=== PATIENT | male | born 1970 | race Caucasian/White ===

== ENCOUNTER 2017-08-29 15:42 | Emergency (ER) | payer OTHER ==
[2017-08-29 16:26] VITALS: BP 128/86
--- NOTE | 2017-08-29 16:37 | UC ---
Shoulder Pain HPI - HPI Summary HPI Summary: left shoulder pain x 1 day injury at work as he was lifting pain with over head activity , + weakness of the left shoulder no swelling, no redness - History of Current Complaint Chief Complaint: UCUpperExtremity Stated Complaint: LEFT SHOULDER INJURY (WC) Time Seen by Provider: 08/29/17 16:27 Hx Obtained From: Patient Onset/Duration: Sudden Onset, Lasting Days - 1, Still Present Timing: Constant Severity Initially: Moderate Severity Currently: Moderate Location Of Pain: Is Discrete @ - left shoulder Character: Aching, Throbbing Aggravating Factor(s): Movement, Lifting, Flexion, Extension, Internal Rotation , External Rotation, Abduction Alleviating Factor(s): Rest Associated Signs And Symptoms: Positive: Weakness. Negative: Swelling, Redness , Bruising, Fever, Numbness/Tingling - Allergies/Home Medications Allergies/Adverse Reactions: Allergies Allergy/AdvReac Type Severity Reaction Status Date / Time No Known Allergies Allergy Verified 08/29/17 16:19 Home Medications: Home Medications NK [No Home Medications Reported] 08/29/17 [History Confirmed 08/29/17] PMH/Surg Hx/FS Hx/Imm Hx - Additional Past Medical History Additional PMH: tonsilar cancer - Surgical History Surgical History: Yes Surgery Procedure, Year, and Place: TONSILLECTOMY AND LEFT NECK TUMOR REMOVAL 2008 - Family History Known Family History: Negative: Diabetes - Social History Alcohol Use: Rare Substance Use Type: None Smoking Status (MU): Never Smoked Tobacco Review of Systems Constitutional: Negative Skin: Negative Eyes: Negative ENT: Negative Respiratory: Negative Cardiovascular: Negative Is Patient Immunocompromised?: No All Other Systems Reviewed And Are Negative: Yes Physical Exam Triage Information Reviewed: Yes Appearance: Well-Appearing, No Pain Distress, Well-Nourished Vital Signs: Initial Vital Signs Temp 98.1 F 08/29/17 16:20 Pulse 58 08/29/17 16:20 Resp 16 08/29/17 16:20 BP 128/86 08/29/17 16:20 Pulse Ox 99 08/29/17 16:20 Vital Signs Reviewed: Yes Eyes: Positive: Conjunctiva Clear ENT: Positive: Normal ENT inspection, Hearing grossly normal, Pharynx normal Neck exam: Normal Neck: Positive: Supple, Nontender, No Lymphadenopathy Respiratory: Positive: Chest non-tender, Lungs clear, Normal breath sounds Cardiovascular: Positive: RRR, No Murmur, Pulses Normal Musculoskeletal: Positive: Other: - left shoulder: no swelling, no erythema, no tendernss, limited ROM on abduction and flexion limited strength of the shoulder Shoulder Course/Dx - Differential Dx/Diagnosis Provider Diagnoses: Rotator cuff injury left shoulder Discharge - Discharge Plan Condition: Stable Disposition: HOME Patient Education Materials: Rotator Cuff Injury (ED) Referrals: Raghav Gary MD [Primary Care Provider] - Kev Reis MD [Medical Doctor] - As Soon As Possible
--- NOTE | 2017-08-29 17:13 | RAD ---
Indication: Left shoulder pain. 4 views of left shoulder demonstrates mild widening of the AC joint. AC separation cannot BE excluded. No fracture is noted. IMPRESSION: Widening of the AC joint. No fracture. Possibility of AC separation should be considered.
== END 2017-08-29 17:10 | disposition home or self-care (01) ==
LOC: UCCORT 15:42
DX: S46.002A Unspecified injury of muscle(s) and tendon(s) of the rotator cuff of left shoulder, initial encounter (principal); X50.0XXA Overexertion from strenuous movement or load, initial encounter; Y93.89 Activity, other specified; Y92.9 Unspecified place or not applicable
CPT/HCPCS: 99201; G0463